=== PATIENT | female | born 1960 | race Caucasian/White ===

== ENCOUNTER → 2018-03-30 11:44 | Outpatient (CLI) | payer BC, SELFPAY ==
[2018-03-30 13:10] LABS: Vitamin B12 805 pg/mL (211-911)
[2018-03-30 13:12] LABS: ALB/GLOB Ratio 1.1 RATIO (0.9-2.4); AST(SGOT) 19 U/L (15-37); Alanine Aminotransfer ALT/SGPT 32 U/L (13-56); Albumin, Serum 4.5 g/dL (3.2-5.0); Alkaline Phosphatase 95 U/L (45-117); Anion Gap 5 (5-15); BUN 14 mg/dL (7-18); BUN/Creat Ratio 17.5 RATIO (10-20); Calcium,Total 9.5 mg/dL (8.5-10.1); Chloride 105 mmol/L (98-107); EST Glomerular Filtration Rate 78 mL/min (>60); Est Glom Filt Rate - Afr Amer 95 mL/min (>60); Free T3 2.9 pg/mL (2.18-3.98); Glucose 92 mg/dL (74-106); Magnesium 1.9 mg/dL (1.6-2.6); Phosphorus 3.2 mg/dL (2.5-4.9); Potassium 3.6 mmol/L (3.5-5.1); Protein, Total 8.5 g/dL (6.4-8.2); Sodium Level 140 mmol/L (136-145); T4 Free Direct 0.88 ng/dL (0.76-1.46); Thyroid Stim Hormone (TSH) 1.79 uIU/mL (0.358-3.74)
== END ==
PROVIDERS: Family Provider Internal Medicine; PCP Internal Medicine; Visit Provider Nurse Practitioner Acute Care
DX: I49.3 Ventricular premature depolarization (principal); R42 Dizziness and giddiness; Z86.73 Personal history of transient ischemic attack (TIA), and cerebral infarction without residual deficits
CPT/HCPCS: 36415; 80053; 82607; 83735; 84100; 84439; 84443; 84481

== ENCOUNTER → 2018-07-14 11:51 | Outpatient (CLI) | payer BC, SELFPAY | PROVIDERS: Family Provider Internal Medicine; PCP Internal Medicine; Visit Provider Obstetrics & Gynecology | DX: Z12.31 Encounter for screening mammogram for malignant neoplasm of breast (principal) | CPT/HCPCS: 77063; 77067 ==

== ENCOUNTER → 2018-11-03 10:06 | Outpatient (CLI) | payer BC, SELFPAY ==
[2018-10-12 10:58] VITALS: BMI 32.4
[2018-11-03 11:13] LABS: AST(SGOT) 19 U/L (15-37); Alanine Aminotransfer ALT/SGPT 27 U/L (13-56); Alkaline Phosphatase 88 U/L (45-117); Bilirubin, Direct 0.08 mg/dL (0.00-0.30); Cholesterol 247 mg/dL (200); High Density Lipoprotein 38 mg/dL; Triglycerides 257 mg/dL; Very Low Density Lipoprotein 51 mg/dL (5-40)
== END ==
PROVIDERS: Family Provider Internal Medicine; PCP Internal Medicine; Referring Provider Internal Medicine Cardiovascular Disease; Visit Provider Internal Medicine Cardiovascular Disease
DX: E78.5 Hyperlipidemia, unspecified (principal)
CPT/HCPCS: 36415; 80061; 80076

== ENCOUNTER → 2019-03-27 08:27 | Outpatient (CLI) | payer BC, SELFPAY ==
[2018-10-12 10:58] VITALS: BMI 32.4
[2019-03-27 09:21] LABS: AST(SGOT) 20 U/L (15-37); Alanine Aminotransfer ALT/SGPT 29 U/L (13-56); Albumin, Serum 4.2 g/dL (3.2-5.0); Alkaline Phosphatase 87 U/L (45-117); Bilirubin, Direct 0.07 mg/dL (0.00-0.30); Cholesterol 257 mg/dL (200); Globulin 3.4 g/dL (2.2-4.2); High Density Lipoprotein 43 mg/dL; Protein, Total 7.6 g/dL (6.4-8.2); Triglycerides 181 mg/dL; Very Low Density Lipoprotein 36 mg/dL (5-40)
== END ==
PROVIDERS: Family Provider Internal Medicine; PCP Internal Medicine; Referring Provider Physician Assistant Medical; Visit Provider Physician Assistant Medical
DX: E78.5 Hyperlipidemia, unspecified (principal)
CPT/HCPCS: 36415; 80061; 80076

== ENCOUNTER → 2019-10-04 14:03 | Outpatient (CLI) | payer BC, SELFPAY ==
[2018-10-12 10:58] VITALS: BMI 32.4
--- NOTE | 2019-10-04 14:07 | RAD_ITS ---
STUDY: X-RAY - THORACIC SPINE REASON FOR EXAM: Female, 58 years old. Back pain TECHNIQUE: 3 view(s) of the thoracic spine were obtained. COMPARISON: None. FINDINGS: Normal kyphosis of the thoracic spine. Moderate levoconvex scoliosis and large bridging osteophytes along the right side. Normal thoracic vertebrae and endplates. Normal disc space heights. The soft tissue structures are unremarkable. RAD/Thoracic Spine 2 Views IMPRESSION: Moderate scoliosis and spondylosis Electronically Signed: Daquan Perry MD at 19:46 EST , Service support ,
== END ==
PROVIDERS: Family Provider Internal Medicine; PCP Internal Medicine; Referring Provider Nurse Practitioner Family; Visit Provider Nurse Practitioner Family
DX: M54.6 Pain in thoracic spine (principal)
CPT/HCPCS: 72070

== ENCOUNTER → 2019-11-16 13:29 | Outpatient (CLI) | payer BC, SELFPAY ==
[2019-11-01 11:00] VITALS: BMI 33.2
--- NOTE | 2019-11-16 13:30 | ECHOD_ITS ---
Reason For Study: DYSPNEA Procedure This was a 2D Doppler, Color Flow transthoracic echocardiogram. The exam was of adequate technical quality. Exam performed in department. Left Ventricle Normal LV size. Left ventricular systolic function is normal. The estimated ejection fraction is 65 %. No evidence for diastolic dysfunction. No regional wall motion abnormalities noted. Right Ventricle Normal RV size. Normal systolic function. Atria Normal left atrium. Normal right atrium. No doppler evidence for ASD. Mitral Valve There is no mitral annular calcification. Anterior leaflet diffuse mitral valve thickening. Trivial mitral valve insufficiency. Tricuspid Valve Normal tricuspid valve. Mild tricuspid valve insufficiency. Right ventricular systolic pressure estimated to be 30 mmHg. Aortic Valve Trisinus/trileaflet aortic valve. Normal aortic valve. Pulmonic Valve The pulmonic valve is not well visualized. Trivial pulmonic valve insufficiency. Great Vessels Normal sized aortic root. Pericardium/Pleural No pericardial effusion. MMode/2D Measurements & Calculations LVIDd: 4.3 cm IVSd: 0.79 cm Ao root diam: 2.9 cm LVIDs: 2.9 cm LVPWd: 0.82 cm RVDd: 3.1 cm FS: 30.8 % LAV(MOD-bp): 31.1 ml LVAd ap4: 27.0 cm2 SV(MOD-sp4): 45.3 ml LAV(MOD-bp) Indexed: 18.1 ml/m2 EDV(MOD-sp4): 81.0 ml LAV(MOD-sp2): 37.6 ml EDV(sp4-el): 82.9 ml LAV(MOD-sp4): 26.5 ml LVAs ap4: 16.0 cm2 ESV(MOD-sp4): 35.7 ml ESV(sp4-el): 36.3 ml EF(MOD-sp4): 55.9 % EF(sp4-el): 56.2 % SV(sp4-el): 46.6 ml LA A4 area: 12.0 cm2 LA dimension(2D): 4.1 cm RA A4 area: 10.4 cm2 Time Measurements MV dec time: 0.18 sec Doppler Measurements & Calculations MV E max yovany: 90.7 cm/sec Lat Peak E' Yovany: 10.3 cm/sec Ao V2 max: 111.6 cm/sec MV A max yovany: 102.4 cm/sec E/E' lat: 8.8 Ao max P.0 mmHg MV E/A: 0.89 LV V1 max: 95.9 cm/sec MR max yovany: 7.4 cm/sec PA V2 max: 114.4 cm/sec LV V1 max P.7 mmHg MR max P.02 mmHg TR max yovany: 260.9 cm/sec TR max P.2 mmHg Interpretation Summary Left ventricular systolic function is normal. The estimated ejection fraction is 65 %. Anterior leaflet diffuse mitral valve thickening. Trivial mitral valve insufficiency. Mild tricuspid valve insufficiency. Trivial pulmonic valve insufficiency. Right ventricular systolic pressure estimated to be 30 mmHg. No evidence for diastolic dysfunction. Ordering Physician: Ed Knight Referring Physician: CLAUDE JEAN BAPTISTE Performed By: Judy Jaramillo, RDCS, RVT
== END ==
PROVIDERS: Family Provider Internal Medicine; PCP Internal Medicine; Referring Provider Internal Medicine Cardiovascular Disease; Visit Provider Internal Medicine Cardiovascular Disease
DX: R06.00 Dyspnea, unspecified (principal); R06.02 Shortness of breath; I49.3 Ventricular premature depolarization; Q21.1 Atrial septal defect; I10 Essential (primary) hypertension; E78.5 Hyperlipidemia, unspecified
CPT/HCPCS: 93306

== ENCOUNTER → 2019-11-19 13:19 | Outpatient (CLI) | payer SELFPAY ==
[2019-10-20 13:45] VITALS: BP 137/91; PULSE 90; RESP 16; O2SAT 96; BMI 32.5
[2019-10-20 13:59] VITALS: BP 128/80; PULSE 88
[2019-10-20] MEDS: Metoprolol Tartrate 5 MG/5 ML Vial IV ×3 (13:59→14:11)
[2019-10-20 14:04] VITALS: BP 131/69; PULSE 85
[2019-10-20 14:11] VITALS: BP 118/77; PULSE 86
[2019-10-20 14:16] VITALS: BP 122/70; PULSE 85; RESP 14; O2SAT 100
[2019-10-20 14:31] VITALS: BP 121/65; PULSE 86; RESP 16; O2SAT 100
[2019-11-01 11:00] VITALS: BMI 33.2
--- NOTE | 2019-11-19 13:21 | CT_ITS ---
STUDY: CARDIAC CALCIUM SCORING - CT CHEST REASON FOR EXAM: Female, 59 years old. HYPERCHOLESTEROLEMIA RADIATION DOSAGE (If Supplied By Facility): CTDIvol = ( 12.19 ) mGy, DLP = ( 170.66 ) mGycm TECHNIQUE: Axial non-enhanced images were acquired through the heart for the sole purpose of measuring coronary artery calcium. Individualized dose optimization techniques were used for this CT. COMPARISON: Chest radiograph 07/23/2017. FINDINGS: Visualized surrounding anatomy: No acute findings. Right scoliosis lumbar spine partially visible. Mild subsegmental linear atelectasis left lung base.. Left Main Coronary Artery: 0 Left Anterior Descending Artery: 410 Left Circumflex Artery: 0 Right Coronary Artery: 211 Other: Total Calcium Score: 621 CT/Limited Chest CT w/CCTA IMPRESSION: A Calcium Score of 621 places the patient in the approximate greater than 90th percentile, based on the HART data calculator. Extensive plaque burden. High likelihood of at least one significant coronary stenosis. Please go to: [email or web address]/Calcium/input.aspx , for a description of the calculator. Electronically Signed: Ricardo Harper, at 21:05 EST Tel , Service support ,
[2019-11-19 13:25] VITALS: BP 90/57; PULSE 74; RESP 16; O2SAT 95; BMI 30.8
--- NOTE | 2019-11-19 17:27 | CA.SCORE ---
Calcium Scoring Date of Study:: 11/19/19 Coronary Calcium Scoring: High-resolution Computed Tomographic imaging of the chest was performed on 11/19/2019 with particular attention paid to the coronary arteries. Images from the examination were analyzed for the presence and extent of coronary artery calcification , using coronary calcium quantification software. The patient tolerated the procedure well and there were no complications. The results of the coronary calcification analysis are provided below. - Findings Left Main (LM): 0 Left Anterior Descending (LAD): 410 Left Circumflex (LCX): 0 Right Coronary Artery (RCA): 211 Total Agatston Score: 621 Percentile Ranking: Percentile ranking: Per pre-published reference table: Greater than 90% of patients of the same gender/similar age had the same/lower scores. Calcium Scoring Interpretation: 0 No identifiable atherosclerotic plaque. Very low cardiovascular disease risk. <5% chance of presence coronary artery disease A Negative Examination 1-10 Minimal Plaque burden. Significant coronary artery disease very unlikely. 11-100 Mild plaque burden. Likely mild or minimal coronary atherosclerosis. 101-400 Moderate plaque burden Moderate non-obstructive coronary artery disease highly likely. Over 400 Extensive plaque burden. High likelihood of at least one significant coronary stenosis (>50% diameter) Calcium Score: >400 High likelihood of at least one significant coronary stenosis - Continue cardiovascular risk factor evaluation and care as deemed appropriate.
== END ==
PROVIDERS: Family Provider Internal Medicine; PCP Internal Medicine; Referring Provider Internal Medicine; Visit Provider Internal Medicine
DX: E78.00 Pure hypercholesterolemia, unspecified (principal)
CPT/HCPCS: 75571; 76380; A4216

== ENCOUNTER → 2019-12-07 05:54 | Outpatient (CLI) | payer BC, SELFPAY ==
[2019-11-19 13:25] VITALS: BMI 30.8
--- NOTE | 2019-12-07 08:58 | STRESSREP_ITS ---
Stress Test Report Date: 12-07-2019 Procedure: Exercise tolerance test/imaging study Indications: Abnormal cardiac CTA/coronary calcium score; PVCs Consent: Per the patient Procedure: The patient exercised on a Gary protocol for 7 minutes completing Stage II and 1 minute of Stage III achieving a peak heart rate of 171 bpm (106 % predicted maximal heart rate) with a peak blood pressure 180/70 mmHg and a peak MET capacity of 8 METs. The baseline ECG demonstrated normal sinus rhythm; low voltage QRS; poor R wave progression. The peak exercise ECG demonstrated [id number] nonspecific ST segment variability with resolution towards baseline beginning by 1 minute in recovery. There was a rare PVC during recovery. The functional capacity was considered good. There was no complaint of chest discomfort during exercise or recovery. The examination was discontinued secondary to dyspnea. Impression: 1. Technically adequate (percent predicted maximal heart rate greater than 85%) exercise tolerance test 2. Peak exercise ECG with [id number] nonspecific ST segment variability with resolution towards baseline beginning by 1 minute in recovery 3. There was a rare PVC during recovery 4. Nuclear images pending Myocardial perfusion imaging study: Technique: The patient was injected with 11.6 mCi of technetium 99m Cardiolite and subseque ntly rest SPECT Cardiolite nuclear imaging was obtained in the horizontal long, vertical long, and short axis views. The patient exercised on a Gary protocol for 7 minutes completing Stage II and 1 minute of Stage III achieving a peak heart rate of 171 bpm (106 % predicted maximal heart rate) with a peak blood pressure 180/70 mmHg and a peak MET capacity of 8 METs. The patient was injected with 33.5 mCi of technetium 99m Cardiolite and subsequently stress SPECT Cardiolite nuclear imaging was obtained in the horizontal long, vertical long, and short axis views. A gated Cardiolite study at peak stress was obtained. Interpretation: Rest and stress SPECT Cardiolite nuclear imaging status post realignment, normalization, and attenuation correction, demonstrates the appearance of relative uniform tracer uptake and myocardial perfusion appearing within normal limits. There is end systolic thickening and brightening. The gated Cardiolite study demonstrates myocardial thickening and inward wall motion. The reported LVEF is 73 %. Impression: 1. Rest and stress SPECT Cardiolite nuclear imaging demonstrate relative uniform tracer uptake and myocardial perfusion appearing within normal limits. 2. The gated Cardiolite study reports an LVEF of 73 %. This note was generated with Dragon dictation software. It may contain incorrect words, spelling, and punctuation that were not noted in checking the note before signing.
== END ==
PROVIDERS: Family Provider Internal Medicine; PCP Internal Medicine; Referring Provider Internal Medicine Cardiovascular Disease; Visit Provider Internal Medicine Cardiovascular Disease
DX: R06.02 Shortness of breath (principal); R93.1 Abnormal findings on diagnostic imaging of heart and coronary circulation
CPT/HCPCS: 78452; 93017; A9500; A4216

== ENCOUNTER → 2020-02-01 11:08 | Outpatient (CLI) | payer BC, SELFPAY ==
[2019-11-19 13:25] VITALS: BMI 30.8
--- NOTE | 2020-02-01 11:10 | BI_ITS ---
MAMMOGRAPHY - BILATERAL SCREENING REASON FOR EXAM: Female, 59 years old. Routine annual screening examination. PERTINENT HISTORY: Non-contributory. TECHNIQUE: Digital bilateral breast arya (3D mammographic acquisition) in the CC and MLO projections. 2-D mediolateral oblique (MLO) and craniocaudad (CC) views of both breasts were obtained. CAD: Full Field Digital Mammography with Computer Added Detection was performed. COMPARISON: Comparison is made with prior examination July 14, 2018 and June 30, 2017. FINDINGS: Breast Composition: The breasts are almost entirely fatty. There are no dominant masses or suspicious calcifications. Stable small benign-appearing bilateral axillary nodes. No other significant abnormalities are identified. There has been no significant change since the prior study. BI/SCREEN MAMM (CAD) W/ARYA BILAT IMPRESSION: Stable bilateral screening mammogram. Yearly follow-up mammogram recommended. (A) ASSESSMENT CATEGORY: BIRADS Category 2: Benign. A letter regarding these results will be sent to the patient by the facility within 30 days. Approximately 10% of breast cancers are not detected by mammography. A normal mammogram should not delay biopsy of a clinically suspicious abnormality. [id number] Electronically Signed: John Walsh, at 12:39 EST , Service support ,
== END ==
PROVIDERS: PCP Internal Medicine; Referring Provider Obstetrics & Gynecology; Visit Provider Obstetrics & Gynecology
DX: Z12.31 Encounter for screening mammogram for malignant neoplasm of breast (principal)
CPT/HCPCS: 77063; 77067

== ENCOUNTER → 2020-02-07 17:42 | Outpatient (CLI) | payer BC, SELFPAY ==
[2020-02-07 11:00] VITALS: BMI 30.8
[2020-02-11 11:35] LABS: HPV APTIMA, High Risk Negative (Negative)
== END ==
PROVIDERS: PCP Internal Medicine; Referring Provider Obstetrics & Gynecology; Visit Provider Obstetrics & Gynecology
DX: Z12.4 Encounter for screening for malignant neoplasm of cervix (principal)
CPT/HCPCS: 87624; 88175; G0145

== ENCOUNTER → 2020-11-13 07:57 | Outpatient (CLI) | payer BC, SELFPAY ==
[2020-11-06 10:07] VITALS: BMI 32.7
--- NOTE | 2020-11-14 14:39 | PFT ---
INTRODUCTION: The patient is a 60-year-old female who presents for pulmonary function studies secondary to a diagnosis of dyspnea. Respiratory therapy reports good patient effort. Bronchodilators were used during testing. INTERPRETATION: Forced expiration spirometry demonstrates no evidence of a large airways obstructive ventilatory defect. There was no significant response to aerosolized bronchodilators. Spirograms are of good quality and plateau normally. Body plethysmography was performed and reveals lung volumes to be within normal limits. Diffusing capacity by single breath CO is also within normal limits. IMPRESSION: Grossly normal pulmonary function studies.
== END ==
PROVIDERS: PCP Internal Medicine; Referring Provider Internal Medicine Cardiovascular Disease; Visit Provider Internal Medicine Cardiovascular Disease
DX: I10 Essential (primary) hypertension (principal); E78.5 Hyperlipidemia, unspecified; R06.00 Dyspnea, unspecified; R93.1 Abnormal findings on diagnostic imaging of heart and coronary circulation
CPT/HCPCS: 94060; 94726; 94729

== ENCOUNTER → 2021-02-19 12:11 | Outpatient (CLI) | payer BC, SELFPAY ==
[2020-11-06 10:07] VITALS: BMI 32.7
[2021-02-19 12:40] LABS: CPK Total, Creatine Kinase 157 U/L (26-192)
== END ==
PROVIDERS: PCP Internal Medicine; Referring Provider Internal Medicine; Visit Provider Internal Medicine
DX: R07.9 Chest pain, unspecified (principal)
CPT/HCPCS: 82550; 84484

== ENCOUNTER → 2021-03-06 13:34 | Outpatient (CLI) | payer BC, SELFPAY ==
[2020-11-06 10:07] VITALS: BMI 32.7
--- NOTE | 2021-03-06 13:41 | CT_ITS ---
STUDY: CT ABDOMEN AND PELVIS WITH CONTRAST REASON FOR EXAM: Female, 60 years old. ABD WALL HERNIA RADIATION DOSAGE (If Supplied By Facility): CTDIvol = ( 12.66 ) mGy, DLP = ( 897.06 ) mGycm TECHNIQUE: Transaxial images were obtained from the dome of the diaphragm to the symphysis pubis without oral contrast. Oral and amp; IV Readi-CAT and amp; 100mL Isovue-300 was administered. Sagittal and coronal images were reconstructed. Individualized dose optimization techniques were used for this CT. COMPARISON: 2015 FINDINGS: The visualized lung bases are unremarkable. The visualized portions of the heart are within normal limits. There is decreased attenuation of the liver consistent with steatosis. Normal gallbladder and extrahepatic biliary system. Normal spleen. Normal pancreas. Normal bilateral adrenal glands. Normal right kidney. Normal left kidney. Normal visualized stomach. Normal small intestine. Retained stool noted throughout the colon. There is non-visualization of the appendix. Normal abdominal aorta. Normal inferior vena cava. Normal retroperitoneum. Normal urinary bladder. Uterus is present, the endometrium cannot be accurately evaluated with CT. No suspicious cystic mass or free fluid Normal abdominal wall. There are diffuse degenerative changes of the visualized lumbar spine, and pelvis. CT/Abdomen/Pelvis WITH Contrast IMPRESSION: Fatty liver, no discrete lesion No free intraperitoneal fluid, air, or suspicious adenopathy Retained stool Uterus still present, the endometrium cannot be accurately evaluated with CT. Degenerative bony changes with scoliosis Electronically Signed: Franky Roberto MD at 14:18 EDT , Service support ,
== END ==
PROVIDERS: PCP Internal Medicine; Referring Provider Internal Medicine; Visit Provider Internal Medicine
DX: K43.9 Ventral hernia without obstruction or gangrene (principal)
CPT/HCPCS: 74177; Q9967

== ENCOUNTER → 2021-03-15 10:00 | Outpatient (CLI) | payer BC, SELFPAY ==
[2020-11-06 10:07] VITALS: BMI 32.7
== END ==
PROVIDERS: PCP Internal Medicine; Referring Provider Physician Assistant Medical; Visit Provider Physician Assistant Medical
DX: R00.0 Tachycardia, unspecified (principal)
CPT/HCPCS: 93225; 93226

== ENCOUNTER → 2021-10-18 10:43 | Outpatient (CLI) | payer BC, SELFPAY ==
[2020-11-06 10:07] VITALS: BMI 32.7
--- NOTE | 2021-10-18 10:44 | BI_ITS ---
MAMMOGRAPHY - BILATERAL SCREENING REASON FOR EXAM: Female, 60 years old. Routine annual screening examination. PERTINENT HISTORY: Non-contributory. TECHNIQUE: Digital bilateral breast arya (3D mammographic acquisition) in the CC and MLO projections. 2-D mediolateral oblique (MLO) and craniocaudad (CC) views of both breasts were obtained. CAD: Full Field Digital Mammography with Computer Added Detection was performed. COMPARISON: Comparison is made with prior study dated 02/01/2020 and 07/14/2018. FINDINGS: Breast Composition: The breasts are almost entirely fatty. There are no dominant masses or suspicious calcifications. Stable benign-appearing bilateral axillary. No other significant abnormalities are identified. There has been no significant change since the prior study. BI/SCRN MAMM (CAD)W/ARYA BILAT IMPRESSION: Stable bilateral screening mammogram. Yearly follow-up mammogram recommended. (A) ASSESSMENT CATEGORY: BIRADS Category 2: Benign. A letter regarding these results will be sent to the patient by the facility within 30 days. Approximately 10% of breast cancers are not detected by mammography. A normal mammogram should not delay biopsy of a clinically suspicious abnormality. [id number] Electronically Signed: John Walsh MD at 12:38 EST , Service support ,
== END ==
PROVIDERS: PCP Internal Medicine; Referring Provider Obstetrics & Gynecology; Visit Provider Obstetrics & Gynecology
DX: Z12.31 Encounter for screening mammogram for malignant neoplasm of breast (principal)
CPT/HCPCS: 77063; 77067

== ENCOUNTER → 2021-11-01 13:02 | Outpatient (CLI) | payer BC, SELFPAY ==
--- NOTE | 2021-11-01 13:25 | BD_ITS ---
STUDY: DUAL ENERGY X-RAY ABSORPTIOMETRY / DXA REASON FOR EXAM: Female, 60 years old. [id number] -- . Patient is postmenopausal. TECHNIQUE: Bone Mineral Density (BMD) measurements of lumbar spine and bilateral hips were obtained. COMPARISON: Comparison is made with prior study dated 09/04/2016. FINDINGS: Lumbar Spine (L1-L4): g/cm2 (1.220) / T-score (1.6) / Z-score (3.1) Findings are suggestive of normal bone density with a low fracture risk. Left Femur Total: g/cm2 (1.023) / T-score (0.7) / Z-score (1.7) Left Femoral Neck: g/cm2 (0.813) / T-score (-0.3) / Z-score (1.0) Right Femur Total: g/cm2 (1.031) / T-score (0.7) / Z-score (1.8) Right Femoral Neck: g/cm2 (0.853) / T-score (0.0) / Z-score (1.4) The T-Scores on the most recent prior examination were: Lumbar Spine (L1-L4): There has been worsening of bone density since the previous examination. Left Femur Total: which represents a worsening of 5.4%. Right Femur Total: which represents a worsening of 4.3%. BD/Dexa Bone Density Study IMPRESSION: The patient is considered normal as outlined below according to World Brian Organization (WHO) criteria with a low fracture risk. There has been worsening of bone density since the previous examination. Reference Information: The T-score is the number of standard deviations above or below the standard which is normal for young adults at their peak bone mineral density. The World Health Organization (WHO) interprets the T-scores as follows: Above -1 Normal bone density Between -1 and -2.5 Osteopenia Equal to / or below -2.5 Osteoporosis As a practical clinical guideline, osteopenia may be graded as follows: Mild -1 through -1.5 Moderate -1.6 through -2.0 Severe -2.1 through -2.4 The Z-score is the number of standard deviations above or below age-matched controls. A Z-score of less than -1.5 would be considered abnormal. References: 1. NIH Osteoporosis and Related Bone Diseases www osteo.org 2. International Society for Clinical Densitometry www iscd.org 3. National Osteoporosis Foundation www nof.org Electronically Signed: John Walsh MD at 8:40 EST , Service support ,
== END ==
PROVIDERS: PCP Internal Medicine; Referring Provider Internal Medicine; Visit Provider Internal Medicine
DX: Z78.0 Asymptomatic menopausal state (principal)
CPT/HCPCS: 77080

== ENCOUNTER 2022-06-20 14:51 | Emergency (ER) | payer BC, SELFPAY ==
[2022-06-20 14:52] VITALS: BP 151/88; PULSE 90; RESP 16; TEMP 36.8; O2SAT 97; BMI 27.7
--- NOTE | 2022-06-20 15:08 | EX.ED.DYSGE1 ---
HPI <GIOVANNI Vigil - Last Filed: 06/20/22 16:04> History of Present Illness Chief Complaint: Lower Extremity Injury Narrative Narrative: 61-year-old female presents with right knee pain started today. She was walking and it felt tight like it was going to give out and then over about 30 minutes progressively swelled and became painful to the point she could not ambulate. There was no fall or direct trauma. She has had pain in the knee in January this year and saw an orthopedic doctor who sent her to physical therapy and she improved. No surgical history on the lower extremity. Of note she also takes Eliquis for history of factor V Leiden. [facility] <GIOVANNI Vigil - Last Filed: 06/20/22 16:04> [facility] Medical History Abnormal cardiac CT angiography Cluster headaches Essential hypertension Factor 5 Leiden mutation, heterozygous History of back problems Hyperlipidemia Hypertension ALLA on CPAP Patent foramen ovale Sinus tachycardia SOB (shortness of breath) TIA (transient ischemic attack) Home Medications lisinopril 10 mg tablet 10 mg PO DAILY 06/25/16 [History Last Taken 06/24/16] Parsley 2 tab PO DAILY 07/23/17 [History Last Taken Unknown] multivitamin with folic acid 400 mcg tablet 1 tab PO DAILY 07/23/17 [History Last Taken Unknown] rizatriptan 10 mg tablet 10 mg PO DAILY PRN migraines 07/23/17 [History Last Taken Unknown] apixaban 5 mg tablet (Eliquis) 5 mg PO BID 07/14/18 [History Last Taken Unknown] coenzyme Q10 200 mg capsule (Co Q-10) 200 mg PO DAILY 02/07/20 [History Last Taken Unknown] ascorbic acid (vitamin C) 1,000 mg tablet 1 g PO DAILY 11/06/20 [History Last Taken Unknown] cholecalciferol (vitamin D3) 125 mcg (5,000 unit) capsule 125 mcg PO DAILY 11/06/20 [History Last Taken Unknown] pyridoxine (vitamin B6) 100 mg tablet 100 mg PO DAILY 11/06/20 [History Last Taken Unknown] hydrocodone-acetaminophen 5-325mg 5mg-325mg 1 tab PO Q6H PRN PRN Pain 2 days #8 TABLETS 06/20/22 [Rx Last Taken Unknown] Allergy/AdvReac Type Severity Reaction Status Date / Time simvastatin AdvReac Severe Depression Verified 06/20/22 14:56 atorvastatin AdvReac unknown Verified 06/20/22 14:56 Family History Mother Heart disease Diabetes Father Heart disease Diabetes Brother Heart disease Diabetes Sister Diabetes Heart disease Grandfather Heart disease Grandmother Heart disease Diabetes Surgical History Hx of appendectomy Social History Smoking Status: Never smoker alcohol intake: never substance use type: does not use caffeine: Yes what type of physical activity do you participate in: walking frequency: 5-6 times per week seatbelt use: always do you feel safe at home: Yes additional social history: [employer] Patient takes care of grandchildren ROS <GIOVANNI Vigil - Last Filed: 06/20/22 16:04> ROS ED ROS Narrative Constitutional: Negative for fever, chills, malaise. Eyes: Negative for visual change. ENT: Negative for sore throat, rhinorrhea. CVS: Negative for palpitations, syncope. Respiratory: Negative for shortness of breath, orthopnea. GI: Negative for abdominal pain, nausea, vomiting. : Negative for dysuria, hematuria or frequency. Neuro: Negative for headache, motor/sensory dysfunction. Skin: Negative for rash, abscess, or wound. Musc: Positive for right knee pain, swelling. No trauma. Heme: Negative for easy bruising, bleeding, lymphadenopathy. EXAM <GIOVANNI Vigil - Last Filed: 06/20/22 16:04> Physical Exam Narrative Exam Narrative: CONST: Patient sitting in no acute distress. EYES: Normal inspection. NECK: Normal inspection. RESP: No respiratory distress, CTAB. CVS: Regular rate and rhythm, no murmur, no gallop. SKIN: Color normal, no rash, warm, dry, intact. EXTREMITIES: Right knee suprapatellar effusion, tenderness over quadriceps tendon with palpable defect. Unable to straight leg raise, significant pain and decreased ROM with knee extension. No appreciable ligamentous laxity. 2+ DP pulse. NEURO: Oriented x4. PSYCH: Normal affect. Const Vital Signs: 06/20/22 14:52 Temperature 98.2 F Temperature Source Temporal Pulse Rate 90 Respiratory Rate 16 Blood Pressure 151/88 H Blood Pressure Mean 109 Pulse Ox 97 Oxygen Delivery Method Room Air <Dr. Kyrie Davis MD - Last Filed: 06/20/22 16:03> Physical Exam Const Vital Signs: 06/20/22 14:52 Temperature 98.2 F Temperature Source Temporal Pulse Rate 90 Respiratory Rate 16 Blood Pressure 151/88 H Blood Pressure Mean 109 Pulse Ox 97 Oxygen Delivery Method Room Air MDM <GIOVANNI Vigil - Last Filed: 06/20/22 16:04> [facility] Narrative Medical decision making narrative: Today patient felt like her right knee was giving out and developed swelling and pain. No fall or trauma. She has a moderate right knee effusion with tenderness over the patella. She is unable to flex the quadriceps but there is no palpable defect. She has pain and limited range with knee extension. No obvious ligamentous laxity. Distal pulses intact. There is no erythema or warmth. X-ray shows effusion but no fracture. She will be placed in knee immobilizer, crutches, and prescribed pain medication. She should follow up with her established orthopedist. Seen and evaluated independently and in conjunction with physician assistant front office manager. Agree with notes above unless documented otherwise. Patient states she has been to orthopedics for her right knee in the past and told that she has some areas of arthritis. She did have a steroid joint injection into her right knee remotely, she was diagnosed with prediabetes at 1 point, she is on no medication for it and states that her blood sugar went up as a result of that injection. Additionally she is on apixaban because she has a history of factor V Leiden. Exam: Right knee large effusion, no excessive warmth compared with other areas or the contralateral knee, no erythema or abnormal color of the skin surrounding the right knee compared with the surrounding areas or contralateral knee. Good short arc range of motion without significant discomfort, but she has significant limited range of motion due to the size of the joint effusion. There is no bony tenderness. Given that she is anticoagulated and has prediabetes, I think that the risks of performing arthrocentesis, especially that of a hemarthrosis, and placing her on prednisone even half dose, especially that of hyperglycemia, outweigh the possible benefits of these procedures. Additionally, arthrocentesis carries a risk of joint infection although that is low. I also think this is much less likely to be gout since it does not examine like a septic arthritis and she has not ever had gout in the past. We are putting her on a knee immobilizer and crutches, we will test walked her in the ED prior to discharging her home, she ambulates well at baseline and I think she will be able to handle this well, she only needs to use a knee immobilizer for as long as it needs to get the fluid and pain to subside, will prescribe her something for pain, she understands increased fall risk here, and I discussed all the pros and cons of this with her, her , and her daughter who was in healthcare. Follow-up with orthopedics advise especially in around 1 week time. Radiography Diagnostic Testing: Clinical Impression(s) from Imaging Studies Knee X-Ray 06/20/22 15:24 IMPRESSION: Large joint effusion. Findings suggestive of an old avulsion fracture of the lateral aspect of the patella. Electronically Signed: John Walsh MD at 15:38 EDT , ED attending interpretation of right knee shows large joint effusion, no acute fracture. <Dr. Kyrie Davis MD - Last Filed: 06/20/22 16:03> [facility] Narrative Medical decision making narrative: Today patient felt like her right knee was giving out and developed swelling and pain. No fall or trauma. She has a moderate right knee effusion with tenderness over the patella. She is unable to flex the quadriceps but there is no palpable defect. She has pain and limited range with knee extension. No obvious ligamentous laxity. Distal pulses intact. Seen and evaluated independently and in conjunction with physician assistant front office manager. Agree with notes above unless documented otherwise. Patient states she has been to orthopedics for her right knee in the past and told that she has some areas of arthritis. She did have a steroid joint injection into her right knee remotely, she was diagnosed with prediabetes at 1 point, she is on no medication for it and states that her blood sugar went up as a result of that injection. Additionally she is on apixaban because she has a history of factor V Leiden. Exam: Right knee large effusion, no excessive warmth compared with other areas or the contralateral knee, no erythema or abnormal color of the skin surrounding the right knee compared with the surrounding areas or contralateral knee. Good short arc range of motion without significant discomfort, but she has significant limited range of motion due to the size of the joint effusion. There is no bony tenderness. Given that she is anticoagulated and has prediabetes, I think that the risks of performing arthrocentesis, especially that of a hemarthrosis, and placing her on prednisone even half dose, especially that of hyperglycemia, outweigh the possible benefits of these procedures. Additionally, arthrocentesis carries a risk of joint infection although that is low. I also think this is much less likely to be gout since it does not examine like a septic arthritis and she has not ever had gout in the past. We are putting her on a knee immobilizer and crutches, we will test walked her in the ED prior to discharging her home, she ambulates well at baseline and I think she will be able to handle this well, she only needs to use a knee immobilizer for as long as it needs to get the fluid and pain to subside, will prescribe her something for pain, she understands increased fall risk here, and I discussed all the pros and cons of this with her, her , and her daughter who was in healthcare. Follow-up with orthopedics advise especially in around 1 week time. Radiography Diagnostic Testing: Clinical Impression(s) from Imaging Studies Knee X-Ray 06/20/22 15:24 IMPRESSION: Large joint effusion. Findings suggestive of an old avulsion fracture of the lateral aspect of the patella. Electronically Signed: John Walsh MD at 15:38 EDT , Discharge Plan Triage Chief Complaint: Lower Extremity Injury ED Midlevel Provider: Sheeba Bledsoe ED Provider: Kyrie Davis Dx/Rx/DC Orders Clinical Impression: Effusion of right knee joint Instructions: ED Knee Immobilizer, ED Knee Effusion Prescriptions: New hydrocodone-acetaminophen [hydrocodone-acetaminophen] 5-325 mg tablet 1 tab PO Q6H PRN PRN (Reason: Pain) 2 Days Qty: 8 0RF No Action apixaban [Eliquis] 5 mg tablet 5 mg PO BID coenzyme Q10 [Co Q-10] 200 mg capsule 200 mg PO DAILY cholecalciferol (vitamin D3) 125 mcg (5,000 unit) capsule 125 mcg PO DAILY ascorbic acid (vitamin C) 1,000 mg tablet 1 g PO DAILY pyridoxine (vitamin B6) 100 mg tablet 100 mg PO DAILY lisinopril 10 MG tablet 10 mg PO DAILY Label Comments: blood pressure rizatriptan 10 MG tablet 10 mg PO DAILY PRN (Reason: migraines) Label Comments: TAKE ONE TABLET BY MOUTH NEEDED multivitamin with folic acid 1 TABLET tablet 1 tab PO DAILY Parsley 2 tab PO DAILY Primary Care Provider: Di Carreon Referrals: Curtis Shea DO [STAFF PHYSICIAN] - 1 Week Disposition Disposition: Home, Self Care
[2022-06-20] MEDS: oxyCODONE 5 MG Tablet PO (15:17)
[2022-06-20] MEDS: Ondansetron ODT 4 MG Tablet PO (15:17)
--- NOTE | 2022-06-20 15:24 | RAD_ITS ---
STUDY: X-RAY - RIGHT KNEE REASON FOR EXAM: Female, 61 years old. Knee pain. No known injury. TECHNIQUE: 4 view(s) of the knee. COMPARISON: None. FINDINGS: Normal visualized distal femur. Normal visualized proximal tibia and fibula. Normal proximal tibiofibular articulation. Normal medial femorotibial compartment. Normal lateral femorotibial compartment. Normal patellofemoral articulation. Large joint effusion. Old small avulsion fracture along the lateral aspect of the patella. RAD/Knee 4 or More Views IMPRESSION: Large joint effusion. Findings suggestive of an old avulsion fracture of the lateral aspect of the patella. Electronically Signed: John Walsh MD at 15:38 EDT ,
[2022-06-20 16:23] VITALS: BP 135/76; PULSE 80
== END 2022-06-20 16:36 | disposition home or self-care (01) ==
PROVIDERS: Emergency Provider Emergency Medicine; PCP Internal Medicine; Visit Provider Emergency Medicine
DX: M25.461 Effusion, right knee (principal); D68.51 Activated protein C resistance; M25.561 Pain in right knee; I10 Essential (primary) hypertension; E78.5 Hyperlipidemia, unspecified; R73.03 Prediabetes; G47.33 Obstructive sleep apnea (adult) (pediatric); Z79.01 Long term (current) use of anticoagulants; Z79.899 Other long term (current) drug therapy; Z86.73 Personal history of transient ischemic attack (TIA), and cerebral infarction without residual deficits
CPT/HCPCS: 73564; 99284

== ENCOUNTER → 2022-06-24 | Outpatient (CLI) | payer BC, SELFPAY ==
--- NOTE | 2022-06-24 12:09 | CT_ITS ---
STUDY: CT BRAIN WITHOUT CONTRAST REASON FOR EXAM: Female, 61 years old. HEAT TRAUMA. Recent fall. RADIATION DOSAGE (If Supplied By Facility): CTDIvol = ( 44.99 ) mGy, DLP = ( 796.11 ) mGycm TECHNIQUE: Transaxial CT imaging of the brain was performed without administration of intravenous contrast material. Individualized dose optimization techniques were used for this CT. COMPARISON: Comparison is made with prior study dated 09/06/2017. FINDINGS: Normal soft tissue structures. Normal calvarium. Normal size ventricles and extra-axial spaces for the patient''s age. Normal white matter tracts of the cerebral hemispheres. Normal basal ganglia and thalami. Normal brainstem. Normal cerebellum. There is no intracranial hemorrhage. There are no findings of an acute ischemic infarction. Normal visualized paranasal sinuses. CT/Brain/Head without Contrast IMPRESSION: Normal unenhanced CT scan of the brain. Electronically Signed: John Walsh MD at 13:05 EDT ,
== END | disposition home or self-care (01) ==
LOC: CT 12:08
PROVIDERS: PCP Internal Medicine; Referring Provider Internal Medicine; Visit Provider Internal Medicine
DX: S09.90XA Unspecified injury of head, initial encounter (principal); R51.9 Headache, unspecified
CPT/HCPCS: 70450

== ENCOUNTER → 2022-06-27 | Outpatient (CLI) | payer BC, SELFPAY ==
[2022-06-27 15:10] LABS: Erythrocyte Sedimentation Rate 8 mm/hr (0-30)
[2022-06-27 15:13] LABS: Absolute Lymphocyte Count 1.83 X10^3/uL (0.83-4.51); Basophil# 0.09 X10^3/uL; Basophil% 0.9 % (0-1); Eosinophil# 0.13 X10^3/uL; Eosinophils% 1.3 % (0-5); Hematocrit 43.7 % (37-47); Hemoglobin 14.3 g/dL (12.0-15.0); Lymphocyte # 1.83 X10^3/ul (0.83-4.51); Lymphocyte % 18.6 % (19-41); Mean Corp Hgb Conc 32.7 g/dL (32-36); Mean Corpuscular Hgb 29.7 pg (27.0-32.0); Mean Corpuscular Volume 90.7 fL (81-99); Mean Platelet Vol. 10.4 fl (6.2-12.0); Monocyte# 0.82 X10^3/uL; Monocyte% 8.3 % (0-10); NRBC Flagged by Analyzer 0 % (0-5); Neutrophil # 6.96 X10^3/uL (2.7-7.7); Neutrophil % 70.7 % (47-70); Platelet Count 361 K/mm3 (150-450); RBC Distribution Width CV 13.2 % (11.6-14.6); RBC Distribution Width SD 44.3 fl (35.1-43.9); Red Blood Count 4.82 M/mm3 (4.2-5.4); White Blood Count 9.9 K/mm3 (4.4-11.0)
== END | disposition home or self-care (01) ==
LOC: LAB 10:40
PROVIDERS: PCP Internal Medicine; Referring Provider Physician Assistant; Visit Provider Physician Assistant
DX: M17.11 Unilateral primary osteoarthritis, right knee (principal); M25.461 Effusion, right knee
CPT/HCPCS: 36415; 85025; 85652; 86140

== ENCOUNTER → 2022-06-28 | Outpatient (CLI) | payer BC, SELFPAY ==
--- NOTE | 2022-06-28 06:38 | MRI_ITS ---
EXAM: MR HEAD WITHOUT INTRAVENOUS CONTRAST CLINICAL INDICATION: TIA. Unsteady gait. TECHNIQUE: Multiplanar and multisequence MR images of the brain were obtained without intravenous contrast. This report was created using [employer] report generation technology. COMPARISON: MRI brain 07/23/2017. CT head without contrast 06/24/2022. FINDINGS: BRAIN AND EXTRA-AXIAL SPACES: No diffusion restriction to suspect acute or subacute ischemic infarct. No focal signal abnormalities throughout the brain parenchyma in all pulse sequences. Normal ventricles and cisterns. No intra- or extra-axial hemorrhage. No intracranial mass or mass effect. Posterior fossa structures are unremarkable. No hydrocephalus. SELLA: Unremarkable. Normal sella turcica, pituitary gland, infundibular stalk, optic chiasm and hypothalamus. AUDITORY SYSTEM: Unremarkable. The internal auditory canals are patent. BONES/JOINTS: Unremarkable. No discrete lytic or blastic abnormalities. SINUSES: Unremarkable as visualized. Clear. MASTOID AIR CELLS: Unremarkable as visualized. Clear. ORBITS: Unremarkable as visualized. Both globes, extraocular muscles, optic nerves and retrobulbar fat appear unremarkable. VASCULATURE: Unremarkable as visualized. Normal flow voids in the major intracranial circulation. MRI/Brain without Contrast IMPRESSION: Normal MRI brain without contrast and no interval change when compared to 07/23/2017. Electronically Signed: Robin Hayden MD at 11:04 EDT ,
== END | disposition home or self-care (01) ==
PROVIDERS: PCP Internal Medicine; Referring Provider Internal Medicine; Visit Provider Internal Medicine
DX: G45.9 Transient cerebral ischemic attack, unspecified (principal); R26.81 Unsteadiness on feet
CPT/HCPCS: 70551

== ENCOUNTER → 2022-08-14 | Outpatient (CLI) | payer BC, SELFPAY ==
--- NOTE | 2022-08-14 12:45 | ECHOD_ITS ---
Reason For Study: FACIAL PARESTHESIA Procedure This was a 2D Doppler, Color Flow transthoracic echocardiogram. The exam was of adequate technical quality. Exam performed in department. Left Ventricle Normal LV size. Left ventricular systolic function is normal. The estimated ejection fraction is 60 %. No evidence for diastolic dysfunction. No regional wall motion abnormalities noted. Right Ventricle Normal RV size. Normal systolic function. Atria Normal left atrium. Normal right atrium. No doppler evidence for ASD. Mitral Valve There is no mitral annular calcification. Normal mitral valve. Mild (1+) mitral valve insufficiency. Tricuspid Valve Normal tricuspid valve. Mild tricuspid valve insufficiency. Right ventricular systolic pressure estimated to be 27 mmHg. Aortic Valve Trisinus/trileaflet aortic valve. Normal aortic valve. Pulmonic Valve The pulmonic valve is not well visualized. Great Vessels Normal sized aortic root. Pericardium/Pleural No pericardial effusion. MMode/2D Measurements & Calculations LVIDd: 4.5 cm IVSd: 0.56 cm Ao root diam: 2.7 cm LVIDs: 2.9 cm LVPWd: 0.66 cm RVDd: 2.9 cm FS: 36.4 % LAV(MOD-bp): 38.7 ml LVAd ap4: 24.4 cm2 SV(MOD-sp4): 36.3 ml LAV(MOD-bp) Indexed: 22.8 ml/m2 LVLd ap4: 7.5 cm LAV(MOD-sp2): 46.5 ml EDV(MOD-sp4): 66.1 ml LAV(MOD-sp4): 32.4 ml EDV(sp4-el): 67.0 ml LVAs ap4: 14.9 cm2 LVLs ap4: 6.2 cm ESV(MOD-sp4): 29.8 ml ESV(sp4-el): 30.1 ml EF(MOD-sp4): 54.9 % EF(sp4-el): 55.0 % SV(sp4-el): 36.9 ml LA A4 area: 13.5 cm2 LA dimension(2D): 3.9 cm RA A4 area: 13.4 cm2 Time Measurements MV dec time: 0.17 sec Doppler Measurements & Calculations MV E max yovany: 82.7 cm/sec Lat Peak E' Yovany: 13.7 cm/sec Med Peak E' Yovany: 7.7 cm/sec MV A max yovany: 90.0 cm/sec E/E' lat: 6.1 E/E' med: 10.7 MV E/A: 0.92 MV V2 max: 93.6 cm/sec Ao V2 max: 112.9 cm/sec MV max P.5 mmHg MV dec slope: 496.2 cm/sec2 Ao max P.1 mmHg MV V2 mean: 56.7 cm/sec Ao V2 mean: 78.6 cm/sec MV mean P.5 mmHg Ao mean P.8 mmHg MV V2 VTI: 24.4 cm Ao V2 VTI: 25.1 cm LV V1 max: 96.3 cm/sec PA V2 max: 73.3 cm/sec TR max yovany: 217.7 cm/sec LV V1 max P.7 mmHg TR max P.0 mmHg LV V1 mean P.0 mmHg LV V1 mean: 67.5 cm/sec LV V1 VTI: 20.0 cm ECHO/Echo Complete Interpretation Summary Left ventricular systolic function is normal. The estimated ejection fraction is 60 %. Mild (1+) mitral valve insufficiency. Mild tricuspid valve insufficiency. Right ventricular systolic pressure estimated to be 27 mmHg. No evidence for diastolic dysfunction. Ordering Physician: Di Carreon Referring Physician: Di Carreon Performed By: Hannah Hernandez RCS
--- NOTE | 2022-08-14 14:10 | CDU_ITS ---
Reason For Study: FACIAL PARATHESIA Rt. Velocities/BP Lt. Velocities/BP Prox CCA 72.9/22.3 cm/sec. Prox CCA 68.3/15.5 cm/sec. Mid CCA 61.1/17.1 cm/sec. Mid CCA 72.0/21.6 cm/sec. Dist CCA 63.3/21.5 cm/sec. Dist CCA 75.6/26.5 cm/sec. Prox ICA 67.7/28.1 cm/sec. Prox ICA 66.2/23.2 cm/sec. Mid ICA 96.3/40.2 cm/sec. Mid ICA 77.2/30.6 cm/sec. Dist ICA 73.2/21.6 cm/sec. Dist ICA 77.2/35.5 cm/sec. Rt. ICA/CCA = 96.3/61.1=1.58. Lt. ICA/CCA = 77.2/72.0=1.07. Prox ECA 74.3/11.7 cm/sec. Prox ECA 63.4/9.3 cm/sec. Rt. Vert. 57.2/22.8 cm/sec. Lt. Vert. 43.4/16.0 cm/sec. Right Extracranial There is intimal thickening but no significant atherosclerotic plaque noted in the right common carotid artery. There is intimal thickening but no significant atherosclerotic plaque noted in the right internal carotid artery. The right internal carotid artery is very tortuous. There is no significant atherosclerotic plaque noted in the right external carotid artery. Antegrade flow is noted in the right vertebral artery. Left Extracranial There is intimal thickening but no significant atherosclerotic plaque noted in the left common carotid artery. There is intimal thickening but no significant atherosclerotic plaque noted in the left internal carotid artery. There is no significant atherosclerotic plaque noted in the left external carotid artery. Antegrade flow is noted in the left vertebral artery. Procedure Carotid Duplex [id number]. Exam performed in department. VL/Carotid Duplex Ultrasound Interpretation Summary Normal right extracranial internal carotid. Normal left extracranial internal carotid. Patent and antegrade vertebrals bilaterally. Ordering Physician: Di Carreon Referring Physician: Di Carreon Performed By: Vianney Fox, RENA, RVT
== END | disposition home or self-care (01) ==
LOC: CVS 12:43
PROVIDERS: PCP Internal Medicine; Referring Provider Internal Medicine; Visit Provider Internal Medicine
DX: R20.2 Paresthesia of skin (principal)
CPT/HCPCS: 93306; 93880

== ENCOUNTER → 2023-01-09 | Outpatient (CLI) | payer BC, SELFPAY ==
--- NOTE | 2023-01-09 14:43 | BI_ITS ---
MAMMOGRAPHY - BILATERAL SCREENING REASON FOR EXAM: Female, 62 years old. Routine annual screening examination. PERTINENT HISTORY: Non-contributory. TECHNIQUE: Digital bilateral breast raya (3D mammographic acquisition) in the CC and MLO projections. 2-D mediolateral oblique (MLO) and craniocaudad (CC) views of both breasts were obtained. CAD: Full Field Digital Mammography with Computer Added Detection was performed. COMPARISON: Comparison is made with prior study 10/18/2021 and 02/01/2020. FINDINGS: Breast Composition: There are scattered areas of fibroglandular density. There are no dominant masses or suspicious calcifications. Stable small benign-appearing bilateral axillary lymph nodes. No other significant abnormalities are identified. There has been no significant change since the prior study. BI/SCRN MAMM (CAD)W/ARYA BILAT IMPRESSION: Stable bilateral screening mammogram. Yearly follow-up mammogram recommended. (A) ASSESSMENT CATEGORY: BIRADS Category 2: Benign. A letter regarding these results will be sent to the patient by the facility within 30 days. Approximately 10% of breast cancers are not detected by mammography. A normal mammogram should not delay biopsy of a clinically suspicious abnormality. [id number] Electronically Signed: John Walsh MD at 15:32 EST ,
== END | disposition home or self-care (01) ==
LOC: OPBI 14:41
PROVIDERS: PCP Internal Medicine; Referring Provider Obstetrics & Gynecology; Visit Provider Obstetrics & Gynecology
DX: Z12.31 Encounter for screening mammogram for malignant neoplasm of breast (principal)
CPT/HCPCS: 77063; 77067

== ENCOUNTER → 2023-03-13 | Outpatient (CLI) | payer BC, SELFPAY ==
[2023-03-13 12:27] LABS: Hemoglobin 13.9 g/dL (12.0-15.0); Mean Corp Hgb Conc 33.1 g/dL (32-36); Mean Corpuscular Hgb 29.8 pg (27.0-32.0); Mean Corpuscular Volume 90.1 fL (81-99); Mean Platelet Vol. 9.4 fl (6.2-12.0); Platelet Count 320 K/mm3 (150-450); RBC Distribution Width CV 13.2 % (11.6-14.6); RBC Distribution Width SD 43.3 fl (35.1-43.9); Red Blood Count 4.66 M/mm3 (4.2-5.4); White Blood Count 6.6 K/mm3 (4.4-11.0)
[2023-03-13 13:03] LABS: ALB/GLOB Ratio 1.1 RATIO (0.9-2.4); AST(SGOT) 23 U/L (15-37); Alanine Aminotransfer ALT/SGPT 34 U/L (13-56); Albumin, Serum 4.4 g/dL (3.2-5.0); Alkaline Phosphatase 87 U/L (45-117); Anion Gap 7 (5-15); BUN 18 mg/dL (7-18); BUN/Creat Ratio 25.7 RATIO (10-20); Calcium,Total 9.9 mg/dL (8.5-10.1); Chloride 106 mmol/L (98-107); EST Glomerular Filtration Rate 90 mL/min (>60); Est Glom Filt Rate - Afr Amer 109 mL/min (>60); Globulin 3.9 g/dL (2.2-4.2); Glucose 110 mg/dL (74-106); Potassium 4.1 mmol/L (3.5-5.1); Protein, Total 8.3 g/dL (6.4-8.2); Sodium Level 140 mmol/L (136-145)
== END | disposition home or self-care (01) ==
LOC: LAB 12:11
PROVIDERS: PCP Internal Medicine; Referring Provider Clinical Nurse Specialist Acute Care; Visit Provider Clinical Nurse Specialist Acute Care
DX: D68.51 Activated protein C resistance (principal)
CPT/HCPCS: 36415; 80053; 85027

== ENCOUNTER → 2023-08-26 | Outpatient (CLI) | payer BC, SELFPAY ==
--- NOTE | 2023-08-26 13:01 | CT_ITS ---
CT LEFT LOWER EXTREMITY WITH 3-D IMAGING CLINICAL INDICATION: VARUS DEFORMITY, NOT ELSEWHERE CLASSIFIED TECHNIQUE: Axial CT images of the left lower extremity, including left hip, left knee, and left ankle was performed without IV contrast material. Coronal and sagittal reformats were provided. RADIATION DOSAGE (If Supplied By Facility): CTDIvol = ( 18.58 ) mGy, DLP = ( 1364.7 ) mGycm COMPARISON: No relevant prior comparison study available. FINDINGS: Bones: There is mild degenerative arthrosis of the left hip joint with mild marginal osteophyte formation. There is tricompartment degenerative arthrosis of the left knee, most pronounced in the medial femorotibial compartment. There are small enthesophytes in the posterior and plantar calcaneal tuberosities. Osseous structures are otherwise normal without evidence of fracture or dislocation. No lytic or blastic osseous masses. Soft Tissues: The deep soft tissue structures are unremarkable. There is a small knee joint effusion. The superficial soft tissues are unremarkable without evidence of edema, hematoma, or foreign body. CT/Extremity Lower without Contra IMPRESSION: Mild degenerative arthrosis of the left hip joint. Tricompartment degenerative arthrosis of the left knee, most pronounced in the medial femorotibial compartment. Small left knee joint effusion. Small enthesophytes in the posterior and plantar calcaneal tuberosities. Electronically Signed: Ronnie Zuniga MD at 15:48 EDT ,
[2023-08-26 14:11] LABS: Absolute Lymphocyte Count 1.87 X10^3/uL (0.83-4.51); Absolute Neutrophil Count 3.8 X10^3/uL (2.0-7.7); Basophil# 0.09 X10^3/uL; Basophil% 1.4 % (0-1); Eosinophil# 0.11 X10^3/uL; Eosinophils% 1.7 % (0-5); Hematocrit 41.4 % (37-47); Hemoglobin 13.1 g/dL (12.0-15.0); Lymphocyte # 1.87 X10^3/ul (0.83-4.51); Lymphocyte % 29.2 % (19-41); Mean Corp Hgb Conc 31.6 g/dL (32-36); Mean Corpuscular Hgb 28.8 pg (27.0-32.0); Mean Platelet Vol. 9.7 fl (6.2-12.0); Monocyte% 7.8 % (0-10); NRBC Flagged by Analyzer 0 % (0-5); Neutrophil # 3.82 X10^3/uL (2.7-7.7); Neutrophil % 59.6 % (47-70); Platelet Count 315 K/mm3 (150-450); RBC Distribution Width CV 13.2 % (11.6-14.6); Red Blood Count 4.55 M/mm3 (4.2-5.4); White Blood Count 6.4 K/mm3 (4.4-11.0)
[2023-08-26 14:52] LABS: Albumin, Serum 4.2 g/dL (3.2-5.0); Anion Gap 5 (5-15); BUN 19 mg/dL (7-18); Calcium,Total 9.4 mg/dL (8.5-10.1); Chloride 109 mmol/L (98-107); Creatinine, Serum 0.76 mg/dL (0.55-1.02); EST Glomerular Filtration Rate 82 mL/min (>60); Est Glom Filt Rate - Afr Amer 99 mL/min (>60); Glucose 117 mg/dL (74-106); Sodium Level 142 mmol/L (136-145)
== END | disposition home or self-care (01) ==
PROVIDERS: PCP Internal Medicine; Referring Provider Specialist; Visit Provider Specialist
DX: Z01.818 Encounter for other preprocedural examination (principal); M17.12 Unilateral primary osteoarthritis, left knee; Z01.810 Encounter for preprocedural cardiovascular examination; M21.162 Varus deformity, not elsewhere classified, left knee
CPT/HCPCS: 36415; 73700; 80048; 82040; 85025; 87081; 93005

== ENCOUNTER → 2024-03-13 | Outpatient (CLI) | payer BC, SELFPAY ==
[2024-03-13 08:40] LABS: Mucous, Urine 0 SEEN /hpf (<or=2+)
[2024-03-13 09:03] LABS: Absolute Neutrophil Count 2.9 X10^3/uL (2.0-7.7); Basophil# 0.09 X10^3/uL; Basophil% 1.6 % (0-1); Eosinophil# 0.21 X10^3/uL; Eosinophils% 3.6 % (0-5); Hematocrit 39.8 % (37-47); Hemoglobin 13.1 g/dL (12.0-15.0); Lymphocyte % 34.6 % (19-41); Mean Corp Hgb Conc 32.9 g/dL (32-36); Mean Corpuscular Hgb 29.1 pg (27.0-32.0); Mean Corpuscular Volume 88.4 fL (81-99); Mean Platelet Vol. 9.7 fl (6.2-12.0); Monocyte# 0.53 X10^3/uL; Monocyte% 9.2 % (0-10); NRBC Flagged by Analyzer 0 % (0-5); Neutrophil # 2.94 X10^3/uL (2.7-7.7); Neutrophil % 50.8 % (47-70); Platelet Count 309 K/mm3 (150-450); RBC Distribution Width CV 13.6 % (11.6-14.6); RBC Distribution Width SD 44.2 fl (35.1-43.9); White Blood Count 5.8 K/mm3 (4.4-11.0)
[2024-03-13 09:42] LABS: AST(SGOT) 18 U/L (15-37); Alanine Aminotransfer ALT/SGPT 25 U/L (13-56); Albumin, Serum 3.9 g/dL (3.2-5.0); Alkaline Phosphatase 83 U/L (45-117); Anion Gap 4 (5-15); BUN 20 mg/dL (7-18); BUN/Creat Ratio 28.6 RATIO (10-20); Calcium,Total 8.8 mg/dL (8.5-10.1); Chloride 109 mmol/L (98-107); Cholesterol 234 mg/dL (200); EST Glomerular Filtration Rate 89 mL/min (>60); Est Glom Filt Rate - Afr Amer 108 mL/min (>60); Globulin 3.8 g/dL (2.2-4.2); Glucose 101 mg/dL (74-106); High Density Lipoprotein 46 mg/dL; Potassium 4.1 mmol/L (3.5-5.1); Protein, Total 7.7 g/dL (6.4-8.2); Sodium Level 139 mmol/L (136-145); Thyroid Stim Hormone (TSH) 2.11 uIU/mL (0.358-3.74); Triglycerides 172 mg/dL; Very Low Density Lipoprotein 34 mg/dL (5-40)
[2024-03-13 09:51] LABS: Color, Urine Yellow (Yellow); Glucose, Dipstick Normal (Normal); Ketone-Dipstick Negative (Negative); Leukocyte Esterase-Dipstick 500 /ul (Negative); Nitrite-Dipstick Negative (Negative); Occult Blood-Urine 10 /ul (Negative); Protein-Dipstick 15 mg/dl (Negative); Urine Bilirubin Dipstick Negative (Negative); Urine Clarity Sl. Cloudy (Clear); Urine Urobilinogen Normal (Normal)
[2024-03-13 09:59] LABS: Bacteria 1+ /hpf (None Seen); Red Blood Cells-Urine 0-5 SEEN /hpf (0-5); Squamous Epithelial Cells - UA 5-10 SEEN /hpf (5-10); White Blood Cells 5-10 SEEN /hpf (0-5)
[2024-03-13 10:32] LABS: Microalbumin,Random Urine 16.2 mg/L (NO RANGE EST.); Microalbumin:Creatinine Ratio 13.4 mg/g CRE (<30 mg/g CRE)
[2024-03-15 09:17] LABS: Vitamin D,25 Hydroxy 61.2 ng/mL
== END | disposition home or self-care (01) ==
PROVIDERS: PCP Internal Medicine; Referring Provider Clinical Nurse Specialist Acute Care; Visit Provider Clinical Nurse Specialist Acute Care
DX: I10 Essential (primary) hypertension (principal); E78.00 Pure hypercholesterolemia, unspecified; R73.09 Other abnormal glucose; Z79.01 Long term (current) use of anticoagulants
CPT/HCPCS: 36415; 80053; 80061; 81001; 82043; 82306; 82570; 84443; 85025

== ENCOUNTER → 2024-06-04 | Outpatient (CLI) | payer BC, SELFPAY ==
[2024-06-09 15:08] LABS: HPV APTIMA, High Risk Negative (Negative)
== END | disposition home or self-care (01) ==
PROVIDERS: PCP Internal Medicine; Visit Provider Obstetrics & Gynecology
DX: Z12.4 Encounter for screening for malignant neoplasm of cervix (principal)
CPT/HCPCS: 87624; 88175; G0145

== ENCOUNTER → 2024-06-28 | Outpatient (CLI) | payer BC, SELFPAY ==
--- NOTE | 2024-06-28 12:38 | BI_ITS ---
MAMMOGRAPHY - BILATERAL SCREENING REASON FOR EXAM: Female, 63 years old. Routine annual screening examination. PERTINENT HISTORY: Non-contributory. TECHNIQUE: Digital bilateral breast arya (3D mammographic acquisition) in the CC and MLO projections. 2-D mediolateral oblique (MLO) and craniocaudad (CC) views of both breasts were obtained. CAD: Full Field Digital Mammography with Computer Added Detection was performed. COMPARISON: Comparison is made with prior study dated January 09, 2023 and October 18, 2021. FINDINGS: Breast Composition: There are scattered areas of fibroglandular density. There are no dominant masses or suspicious calcifications. Stable benign-appearing bilateral axillary lymph nodes. No other significant abnormalities are identified. There has been no significant change since the prior study. BI/SCRN MAMM (CAD)W/ARYA BILAT IMPRESSION: Stable bilateral screening mammogram. Yearly follow-up mammogram recommended. (A) ASSESSMENT CATEGORY: BIRADS Category 2: Benign. A letter regarding these results will be sent to the patient by the facility within 30 days. Approximately 10% of breast cancers are not detected by mammography. A normal mammogram should not delay biopsy of a clinically suspicious abnormality. [id number] Electronically Signed: John Walsh MD at 13:25 EDT ,
== END | disposition home or self-care (01) ==
LOC: OPBI 12:38
PROVIDERS: PCP Internal Medicine; Referring Provider Obstetrics & Gynecology; Visit Provider Obstetrics & Gynecology
DX: Z12.31 Encounter for screening mammogram for malignant neoplasm of breast (principal)
CPT/HCPCS: 77063; 77067

== ENCOUNTER → 2025-02-03 | Outpatient (CLI) | payer BC, SELFPAY ==
[2025-02-03 13:51] LABS: Troponin T High Sensitivity 9 ng/L (<=14)
== END | disposition home or self-care (01) ==
LOC: LABSPEC 12:33
PROVIDERS: PCP Internal Medicine; Referring Provider Internal Medicine; Visit Provider Internal Medicine
DX: R07.89 Other chest pain (principal)
CPT/HCPCS: 84484

== ENCOUNTER → 2025-02-08 | Outpatient (CLI) | payer BC, SELFPAY | END | disposition home or self-care (01) | LOC: PSN 06:50 | PROVIDERS: PCP Internal Medicine; Referring Provider Internal Medicine; Visit Provider Internal Medicine | DX: R00.0 Tachycardia, unspecified (principal) | CPT/HCPCS: 93225; 93226 ==

== ENCOUNTER → 2025-03-07 | Outpatient (CLI) | payer BC, SELFPAY ==
--- NOTE | 2025-03-07 16:22 | STRESSREP_ITS ---
Stress Test Report Exercise myocardial perfusion stress test. 64-year-old lady with a history of chest pain Stress protocol: Resting EKG demonstrates normal sinus rhythm with a rate of 88 bpm resting blood pressure is 138/88 mmHg. The patient exercised according to the regular Gary protocol for a total duration of 4 minutes attaining a maximum heart rate of 169 bpm which was 109% of maximum predicted heart rate; the maximum workload was 7 metabolic equivalents. At rest there were no ST or T wave changes noted to suggest ischemia and at peak exercise upsloping ST changes only were noted which did not meet the criteria for ischemia. No clinical angina was noted the test was terminated due to the target heart rate being achieved/fatigue. The peak bl ood pressure was 198/98 mmHg. Rate-pressure product was 22,200. Myocardial perfusion protocol. 13.5 mCi of technetium 99m sestamibi was injected at rest. The patient exercised according to regular Gary protocol for total duration of 4 minutes and at peak exercise 44.1 mCi of technetium 99m sestamibi was injected stress images were obtained stress and rest images were reconstructed in comparing the short axis vertical long and horizontal long axis. Gated images were also obtained. Perfusion SPECT analysis: Review of the stress images demonstrate normal uptake of tracer noted in all areas of the myocardium. The resting images similarly demonstrate normal uptake of tracer noted in all areas of the myocardium. No areas of reversibility are noted to suggest ischemia no previous infarct was noted. Gated SPECT analysis: The gated ejection fraction is 82%. Conclusion: Normal exercise myocardial perfusion stress test at a moderate workload Preserved ejection fraction.
== END | disposition home or self-care (01) ==
LOC: CVS 06:28
PROVIDERS: PCP Internal Medicine; Referring Provider Internal Medicine; Visit Provider Internal Medicine
DX: R07.89 Other chest pain (principal)
CPT/HCPCS: 78452; 93017; A9500; A4216

== ENCOUNTER → 2025-07-07 | Outpatient (CLI) | payer BC, SELFPAY | END | disposition home or self-care (01) | LOC: PSN 09:37 | PROVIDERS: PCP Internal Medicine; Referring Provider Student in an Organized Health Care Education/Training Program; Visit Provider Student in an Organized Health Care Education/Training Program | DX: R00.0 Tachycardia, unspecified (principal) | CPT/HCPCS: 93225; 93226 ==

== ENCOUNTER → 2025-08-16 | Outpatient (CLI) | payer BC, SELFPAY ==
--- NOTE | 2025-08-16 13:52 | BI_ITS ---
EXAM: SCRN MAMM (CAD)W/ARYA BILAT DATE: 08/16/2025 CLINICAL HISTORY: F, Age 64 y/o , ENCOUNTER FOR SCREENING FOR MALIGNANT NEOPLASM OF BREAST No family history. TECHNIQUE: Procedure Code: [id number] Modality: MG Procedure: SCRN MAMM (CAD)W/ARYA BILAT COMPARISON: Prior exam(s) dated June 28, 2024.. FINDINGS: TISSUE DENSITY: There are scattered areas of fibroglandular density. Bilateral Breast Mammographic Findings: No significant masses, calcifications or other abnormalities are identified. No suspicious masses, areas of developing architectural distortion, or suspicious calcifications. There has been no significant interval change. BI/SCRN MAMM (CAD)W/ARYA BILAT IMPRESSION: Stable bilateral screening mammogram. OVERALL FINAL ASSESSMENT BI-RADS 1: NEGATIVE. RECOMMENDATION: Routine annual follow-up in 1 Year A letter with findings and recommendations will be mailed to the patient. Reading Location: [place] [id number]
--- NOTE | 2025-08-16 14:14 | BD_ITS ---
PROCEDURE: DEXA BONE DENSITY STUDY N/A REASON FOR EXAM: F, age 64 y/o . Postmenopausal. TECHNIQUE: Procedure Code: BDDBD Modality: DX Procedure: DEXA BONE DENSITY STUDY COMPARISON: Prior study dated November 01, 2021. FINDINGS: BMD and T-SCORES Lumbar spine: 1.275 g/cm2, T-score 2.1 Levels: L1 through L4 Change from prior: Improvement of 4.5%. Left femoral neck: 0.739 g/cm2, T-score -1.0 Femoral neck comparison data not recommended for monitoring change. Left total hip: 0.999 g/cm2, T-score 0.5 Change from prior: Loss of 2.4%. Right femoral neck: 0.837 g/cm2, T-score -0.1 Femoral neck comparison data not recommended for monitoring change. Right total hip: 1.033 g/cm2, T-score 0.7 Change from prior: Improvement of 0.2%. The World Health Organization has defined the following categories based on bone density: Normal bone density: T-score equal to or greater than -1.0 Osteopenia: T-score between -1.0 and -2.5 Osteoporosis: T-score equal to or less than -2.5 FRAX (or Comparable) Fracture Risk Assessment: 10 Year Probability of Fracture: Major Osteoporotic Fracture: 7.5% Hip Fracture: 0.5% (Note: FRAX is not to be reported in setting of normal range bone density, osteoporosis on DEXA, known history of osteoporosis, prior osteoporotic hip or vertebral fracture, or for any patient undergoing pharmacological treatment for bone loss.) The National Osteoporosis Foundation (NOF) recommends pharmacological treatment for patients with a FRAX 10-year risk of 3% or higher for a hip fracture, or 20% or higher for a major osteoporotic fracture, to prevent osteoporosis and reduce fracture risk. The patient does not meet the pharmacological treatment recommendations for prevention of osteoporosis. BD/Dexa Bone Density Study IMPRESSION: NORMAL T-SCORES. Recommend follow-up as clinically warranted. Reading Location: [place] [id number]
== END | disposition home or self-care (01) ==
PROVIDERS: PCP Internal Medicine; Referring Provider Internal Medicine; Visit Provider Internal Medicine
DX: Z12.31 Encounter for screening mammogram for malignant neoplasm of breast (principal); Z78.0 Asymptomatic menopausal state
CPT/HCPCS: 77063; 77067; 77080

== ENCOUNTER → 2025-10-26 | Outpatient (CLI) | payer BC, SELFPAY ==
[2025-10-26 13:08] LABS: Cholesterol 161 mg/dL (<=200); Low Density Lipoprotein Calc. 103 mg/dL; Triglycerides 139 mg/dL; Very Low Density Lipoprotein 28 mg/dL (5-40); cholesterol:hdl ratio screen 4.94
== END | disposition home or self-care (01) ==
LOC: LAB 09:04
PROVIDERS: PCP Internal Medicine; Referring Provider Student in an Organized Health Care Education/Training Program; Visit Provider Student in an Organized Health Care Education/Training Program
DX: E78.5 Hyperlipidemia, unspecified (principal)
CPT/HCPCS: 36415; 80061

== ENCOUNTER → 2025-11-14 | Outpatient (CLI) | payer BC, SELFPAY | END | disposition home or self-care (01) | PROVIDERS: PCP Internal Medicine; Referring Provider Internal Medicine Cardiovascular Disease; Visit Provider Internal Medicine Cardiovascular Disease | DX: R42 Dizziness and giddiness (principal) | CPT/HCPCS: 93225; 93226 ==

== ENCOUNTER → 2025-11-21 | Outpatient (CLI) | payer BC, SELFPAY ==
[2025-11-21 09:42] LABS: Mucous, Urine 0 SEEN /hpf (<or=2+); Red Blood Cells-Urine 0 SEEN /hpf (0-5); Squamous Epithelial Cells - UA 0 SEEN /hpf (5-10)
[2025-11-21 10:25] LABS: Hematocrit 41.2 % (37-47); Hemoglobin 13.4 g/dL (12.0-15.0); Immature Granulocytes Count 0.020 X10^3/uL (0.0-0.0); Mean Corp Hgb Conc 32.5 g/dL (32-36); Mean Corpuscular Volume 88.8 fL (81-99); Mean Platelet Vol. 10.2 fl (6.2-12.0); NRBC Flagged by Analyzer 0 % (0-5); Platelet Count 342 K/mm3 (150-450); RBC Distribution Width CV 13.4 % (11.6-14.6); RBC Distribution Width SD 43.7 fl (35.1-43.9); Red Blood Count 4.64 M/mm3 (4.2-5.4); White Blood Count 7.2 K/mm3 (4.4-11.0)
[2025-11-21 10:30] LABS: Color, Urine Yellow (Yellow); Glucose, Dipstick Normal (Normal); Ketone-Dipstick Negative (Negative); Leukocyte Esterase-Dipstick 25 /ul (Negative); Nitrite-Dipstick Negative (Negative); Occult Blood-Urine 10 /ul (Negative); Protein-Dipstick 15 mg/dl (Negative); Specific Gravity, Urine 1.015 (1.002-1.030); Urine Bilirubin Dipstick Negative (Negative)
[2025-11-21 10:51] LABS: Creatinine, Urine (random) 115.00 mg/dL (28.00-217.00); Microalbumin,Random Urine 26.0 mg/L (<20 mg/L)
[2025-11-21 11:08] LABS: AST(SGOT) 17 U/L (<=31); Alanine Aminotransfer ALT/SGPT 17 U/L (<=34); Albumin, Serum 4.7 g/dL (3.4-4.8); Alkaline Phosphatase 101 U/L (35-104); Anion Gap 14 (5-15); BUN 19 mg/dL (4-19); BUN/Creat Ratio 25.0 RATIO (10-20); Calcium,Total 9.8 mg/dL (7.6-11.0); Carbon Dioxide 22.9 mmol/L (21.0-32.0); Chloride 105 mmol/L (98-108); Globulin 3.1 g/dL (2.2-4.2); Glucose 122 mg/dL (70-99); Potassium 4.1 mmol/L (3.3-5.1); Vitamin D,25 Hydroxy 46.0 ng/mL (30-100)
== END | disposition home or self-care (01) ==
LOC: CIMLAB 09:39
PROVIDERS: PCP Internal Medicine; Referring Provider Internal Medicine; Visit Provider Internal Medicine
DX: E11.9 Type 2 diabetes mellitus without complications (principal); E55.9 Vitamin D deficiency, unspecified
CPT/HCPCS: 36415; 80053; 81001; 82043; 82306; 82570; 84443; 85025

== ENCOUNTER → 2025-11-28 | Outpatient (CLI) | payer BC, SELFPAY ==
[2025-11-28 12:47] LABS: Vitamin B12 740 pg/mL (180-914)
== END | disposition home or self-care (01) ==
LOC: CIMLAB 11:10
PROVIDERS: PCP Internal Medicine; Referring Provider Internal Medicine; Visit Provider Internal Medicine
DX: R79.89 Other specified abnormal findings of blood chemistry (principal); E53.8 Deficiency of other specified B group vitamins
CPT/HCPCS: 36415; 82607